=== PATIENT | female | born 1970 | race Caucasian/White ===

== ENCOUNTER 2019-11-22 16:26 | Emergency (ER) | payer OTHER ==
[~2019-11-22] VITALS: Ht 157.5 cm; Wt 99.8 kg
[2019-11-22] MEDS ORDERED: DULOXETINE HCL30 M1 (16:33)
[2019-11-22] MEDS ORDERED: PROM25 (16:34)
[2019-11-22 17:12] LABS: BASOPHILS ABSOLUTE AUTO 0.05 K/mm3 (0.00-0.23); BASOPHILS PERCENT AUTO 1 % (0-2); EOSINOPHILS ABSOLUTE AUTO 0.26 K/mm3 (0.00-0.68); EOSINOPHILS PERCENT AUTO 4 % (0-6); Hematocrit 37.8 % (33.0-51.0); Hemoglobin 12.7 g/dL (11.5-16.0); IMMATURE GRAN ABSOLUTE AUTO 0.05 K/mm3 (0.00-0.10); IMMATURE GRAN PERCENT AUTO 1 % (0-1); LYMPHOCYTES ABSOLUTE AUTO 2.02 K/mm3 (0.84-5.20); LYMPHOCYTES PERCENT AUTO 32 % (21-46); MONOCYTES ABSOLUTE AUTO 0.56 K/mm3 (0.16-1.47); MONOCYTES PERCENT AUTO 9 % (4-13); Mean Corpuscular HGB 29.3 pg (26.0-34.0); Mean Corpuscular HGB Conc 33.6 g/dL (31.5-36.5); Mean Corpuscular Volume 87 fL (80-100); Mean Platelet Volume 9.7 fL (9.1-12.4); NEUTROPHILS PERCENT AUTO 53 % (41-73); Platelet Count 206 K/mm3 (150-400); RDW Coefficient Variation 12.9 % (11.7-14.2); RDW Standard Deviation 40.5 fL (35.1-46.3); Red Blood Cell Count 4.34 M/mm3 (3.80-5.20); White Blood Cell Count 6.24 K/mm3 (4.00-11.30)
[2019-11-22 17:36] LABS: Alanine Aminotransfer (ALT/SGP 34 U/L (12-78); Albumin, Blood 3.4 g/dL (3.4-5.0); Albumin/Globulin Ratio 0.9 (0.8-1.8); Alk Phos 81 U/L (50-136); Anion Gap 6 mmol/L (6-16); Aspartate Aminotrans (AST/SGOT 27 U/L (12-37); Bilirubin, Total 0.5 mg/dL (0.1-1.0); Blood Urea Nitrogen 21 mg/dL (8-24); Bun/Creatinine Ratio 24.6 (12.0-20.0); CO2, Blood 26 mmol/L (21-32); Calcium, Blood 8.8 mg/dL (8.5-10.1); Chloride, Blood 107 mmol/L (98-108); Creatinine, Blood 0.85 mg/dL (0.40-1.00); Globulin, Blood 3.7 g/dL (2.2-4.0); Glomerular Filtration Rate >60 (60-); Glucose, Blood 101 mg/dL (70-99); Potassium, Blood 4.3 mmol/L (3.5-5.5); Sodium, Blood 139 mmol/L (136-145); Total Protein, Blood 7.1 g/dL (6.4-8.2)
== END 2019-11-22 21:32 | disposition home or self-care (01) ==
LOC: ER 16:26
PROVIDERS: Physician Assistant
DX: R42 Dizziness and giddiness (principal); R51 Headache; F43.9 Reaction to severe stress, unspecified; Z79.899 Other long term (current) drug therapy
CPT/HCPCS: 80053; 85025; 93005; 93010; 96361; 96374; 96375; 99284-25; J1200; J1885; J2765; J7030

== ENCOUNTER 2019-12-14 20:20 | Emergency (ER) | payer OTHER ==
[~2019-12-14] VITALS: Ht 157.5 cm; Wt 90.7 kg
[~2019-12-14 20:20] MED LIST: COMPAZINE10 MG PO; Cymbalta30 MG PO; DULOXETINE HCL30 M1; HYDR25SUP PR; PROM25; SUMA25 PO
== END 2019-12-14 23:24 | disposition home or self-care (01) ==
LOC: ER 20:20
DX: L55.9 Sunburn, unspecified (principal); Z88.0 Allergy status to penicillin; Z88.1 Allergy status to other antibiotic agents; Z79.899 Other long term (current) drug therapy; F90.9 Attention-deficit hyperactivity disorder, unspecified type; F41.9 Anxiety disorder, unspecified; Z86.19 Personal history of other infectious and parasitic diseases
CPT/HCPCS: 99282

== ENCOUNTER 2020-04-30 11:11 | Emergency (ER) | payer OTHER ==
[~2020-04-30] VITALS: Ht 154.9 cm; Wt 104.3 kg
[~2020-04-30 11:11] MED LIST changes: +DOC250 PO; +NYSTRIT TOP
[2020-04-30 14:19] LABS: BASOPHILS ABSOLUTE AUTO 0.07 K/mm3 (0.00-0.23); BASOPHILS PERCENT AUTO 1 % (0-2); EOSINOPHILS ABSOLUTE AUTO 0.18 K/mm3 (0.00-0.68); EOSINOPHILS PERCENT AUTO 3 % (0-6); Hematocrit 37.6 % (33.0-51.0); Hemoglobin 12.8 g/dL (11.5-16.0); IMMATURE GRAN ABSOLUTE AUTO 0.07 K/mm3 (0.00-0.10); IMMATURE GRAN PERCENT AUTO 1 % (0-1); LYMPHOCYTES ABSOLUTE AUTO 1.96 K/mm3 (0.84-5.20); LYMPHOCYTES PERCENT AUTO 29 % (21-46); MONOCYTES ABSOLUTE AUTO 0.65 K/mm3 (0.16-1.47); MONOCYTES PERCENT AUTO 10 % (4-13); Mean Corpuscular HGB 29.2 pg (26.0-34.0); Mean Corpuscular Volume 86 fL (80-100); Mean Platelet Volume 9.4 fL (9.1-12.4); NEUTROPHILS ABSOLUTE AUTO 3.93 K/mm3 (1.96-9.15); NEUTROPHILS PERCENT AUTO 57 % (41-73); Platelet Count 201 K/mm3 (150-400); RDW Coefficient Variation 12.3 % (11.7-14.2); RDW Standard Deviation 37.7 fL (35.1-46.3); Red Blood Cell Count 4.39 M/mm3 (3.80-5.20); White Blood Cell Count 6.86 K/mm3 (4.00-11.30)
[2020-04-30 14:35] LABS: Alanine Aminotransfer (ALT/SGP 29 U/L (12-78); Albumin, Blood 3.5 g/dL (3.4-5.0); Albumin/Globulin Ratio 0.9 (0.8-1.8); Alk Phos 87 U/L (50-136); Anion Gap 4 mmol/L (6-16); Aspartate Aminotrans (AST/SGOT 16 U/L (12-37); Bilirubin, Total 0.4 mg/dL (0.1-1.0); Blood Urea Nitrogen 15 mg/dL (8-24); Bun/Creatinine Ratio 21.4 (12.0-20.0); CO2, Blood 31 mmol/L (21-32); Calcium, Blood 9.1 mg/dL (8.5-10.1); Chloride, Blood 105 mmol/L (98-108); Globulin, Blood 3.7 g/dL (2.2-4.0); Glomerular Filtration Rate >60 (60-); Glucose, Blood 127 mg/dL (70-99); Potassium, Blood 4.1 mmol/L (3.5-5.5); Sodium, Blood 140 mmol/L (136-145); Total Protein, Blood 7.2 g/dL (6.4-8.2)
[2020-04-30] MEDS ORDERED: DEPAKOTE ER500 MG PO (14:37)
[2020-04-30] MEDS ORDERED: TRAZ100 PO (14:38)
[2020-04-30] MEDS ORDERED: CYMBALTA30 MG PO (14:38)
[2020-04-30] MEDS ORDERED: QUETIAPINE FUMA50 M3 PO (14:39)
[2020-04-30 15:19] LABS: Influenza A, PCR Negative (NEGATIVE); Influenza B, PCR Negative (NEGATIVE); Resp Syncytial Virus, PCR Negative (NEGATIVE); SARS-Cov-2 (COVID-19) PCR, MMC Negative (NEGATIVE)
== END 2020-04-30 17:12 | disposition home or self-care (01) ==
LOC: ER 11:11
PROVIDERS: Emergency Medicine
DX: K62.5 Hemorrhage of anus and rectum (principal); J06.9 Acute upper respiratory infection, unspecified; K59.00 Constipation, unspecified; F41.9 Anxiety disorder, unspecified; F90.9 Attention-deficit hyperactivity disorder, unspecified type; F43.10 Post-traumatic stress disorder, unspecified; Z88.0 Allergy status to penicillin; Z79.899 Other long term (current) drug therapy
CPT/HCPCS: 0241U; 36415; 71045; 80053; 85025; 99284-25; A9270

== ENCOUNTER 2020-05-07 10:59 | Emergency (ER) | payer OTHER ==
[~2020-05-07] VITALS: Ht 154.9 cm; Wt 104.3 kg
[~2020-05-07 10:59] MED LIST changes: +CYMBALTA30 MG PO; +DEPAKOTE ER500 MG PO; +QUETIAPINE FUMA50 M3 PO; +TRAZ100 PO
[2020-05-07 13:10] LABS: Source, Urine Clean Catch
[2020-05-07 13:18] LABS: Appearance, Urine Hazy (Clear); Bilirubin, Urine Neg (Neg); Blood, Urine 1+ (Neg); Color, Urine Yellow (P-Yellow); Glucose Qualitative, Urine Neg (Neg); Ketones, Urine 1+ (Neg); Leukocyte Esterase, Urine 3+ (Neg); Nitrite, Urine Neg (Neg); Protein, Urine 1+ (Neg); Specific Gravity, Urine 1.025 (1.003-1.022); Urobilinogen, Urine NORM (Normal)
[2020-05-07 13:29] LABS: Squamous Epithelial Cells Few /hpf (Few)
[2020-05-07 13:30] LABS: Bacteria Mod /hpf
[2020-05-07 14:37] LABS: BASOPHILS ABSOLUTE AUTO 0.07 K/mm3 (0.00-0.23); BASOPHILS PERCENT AUTO 1 % (0-2); EOSINOPHILS ABSOLUTE AUTO 0.18 K/mm3 (0.00-0.68); EOSINOPHILS PERCENT AUTO 2 % (0-6); Hemoglobin 13.2 g/dL (11.5-16.0); IMMATURE GRAN ABSOLUTE AUTO 0.07 K/mm3 (0.00-0.10); IMMATURE GRAN PERCENT AUTO 1 % (0-1); LYMPHOCYTES ABSOLUTE AUTO 2.78 K/mm3 (0.84-5.20); LYMPHOCYTES PERCENT AUTO 31 % (21-46); MONOCYTES ABSOLUTE AUTO 0.79 K/mm3 (0.16-1.47); MONOCYTES PERCENT AUTO 9 % (4-13); Mean Corpuscular HGB Conc 34.7 g/dL (31.5-36.5); Mean Corpuscular Volume 86 fL (80-100); Mean Platelet Volume 9.3 fL (9.1-12.4); NEUTROPHILS ABSOLUTE AUTO 5.19 K/mm3 (1.96-9.15); NEUTROPHILS PERCENT AUTO 57 % (41-73); Platelet Count 252 K/mm3 (150-400); RDW Coefficient Variation 12.3 % (11.7-14.2); RDW Standard Deviation 38.5 fL (35.1-46.3); White Blood Cell Count 9.08 K/mm3 (4.00-11.30)
[2020-05-07 14:47] LABS: Alanine Aminotransfer (ALT/SGP 27 U/L (12-78); Albumin, Blood 3.5 g/dL (3.4-5.0); Albumin/Globulin Ratio 0.9 (0.8-1.8); Alk Phos 83 U/L (50-136); Anion Gap 5 mmol/L (6-16); Aspartate Aminotrans (AST/SGOT 13 U/L (12-37); Bilirubin, Total 0.4 mg/dL (0.1-1.0); Blood Urea Nitrogen 15 mg/dL (8-24); Bun/Creatinine Ratio 27.9 (12.0-20.0); CO2, Blood 28 mmol/L (21-32); Calcium, Blood 8.9 mg/dL (8.5-10.1); Chloride, Blood 106 mmol/L (98-108); Creatinine, Blood 0.54 mg/dL (0.40-1.00); Globulin, Blood 3.9 g/dL (2.2-4.0); Glomerular Filtration Rate >60 (60-); Glucose, Blood 114 mg/dL (70-99); Potassium, Blood 3.7 mmol/L (3.5-5.5); Sodium, Blood 139 mmol/L (136-145); Total Protein, Blood 7.4 g/dL (6.4-8.2); Valproic Acid 34.6 ug/mL (50.0-100.0)
[2020-05-07] MEDS ORDERED: Bactrim Ds Tab1 EACH PO (15:21)
[2020-05-07] MEDS ORDERED: MECL25 PO (15:21)
[2020-05-07 15:38] LABS: U Amphetamine Screen Not Detected; U Barbituate Screen Not Detected; U Benzodiazapine Screen Not Detected; U Buprenorphine Screen Not Detected; U Cannabinoids Screen Not Detected; U Cocaine Screen Not Detected; U Methadone Screen Not Detected; U Methamphetamine Screen Not Detected; U Opiates Screen Not Detected; U Oxycodone Screen Not Detected; U Phencyclidine Screen Not Detected; U Propoxyphene Screen Not Detected
== END 2020-05-07 15:44 | disposition home or self-care (01) ==
LOC: ER 10:59
PROVIDERS: Emergency Medicine
DX: N39.0 Urinary tract infection, site not specified (principal); R42 Dizziness and giddiness; F41.9 Anxiety disorder, unspecified; Z88.0 Allergy status to penicillin; Z79.899 Other long term (current) drug therapy
CPT/HCPCS: 36415; 70450; 80053; 80164; 81001; 85025; 87086; 87147; 93005; 93010; 96374; 99285-25; A9270; A9270-GY; J2405

== ENCOUNTER 2020-06-14 10:25 | Emergency (ER) | payer OTHER ==
[~2020-06-14] VITALS: Ht 154.9 cm; Wt 104.3 kg
[~2020-06-14 10:25] MED LIST changes: +Bactrim Ds Tab1 EACH PO; +MECL25 PO
[2020-06-14 11:00] LABS: BASOPHILS ABSOLUTE AUTO 0.05 K/mm3 (0.00-0.23); BASOPHILS PERCENT AUTO 1 % (0-2); EOSINOPHILS ABSOLUTE AUTO 0.17 K/mm3 (0.00-0.68); EOSINOPHILS PERCENT AUTO 2 % (0-6); Hematocrit 39.5 % (33.0-51.0); Hemoglobin 13.9 g/dL (11.5-16.0); IMMATURE GRAN ABSOLUTE AUTO 0.06 K/mm3 (0.00-0.10); IMMATURE GRAN PERCENT AUTO 1 % (0-1); LYMPHOCYTES ABSOLUTE AUTO 2.09 K/mm3 (0.84-5.20); LYMPHOCYTES PERCENT AUTO 28 % (21-46); MONOCYTES ABSOLUTE AUTO 0.59 K/mm3 (0.16-1.47); MONOCYTES PERCENT AUTO 8 % (4-13); Mean Corpuscular HGB 29.3 pg (26.0-34.0); Mean Corpuscular HGB Conc 35.2 g/dL (31.5-36.5); Mean Corpuscular Volume 83 fL (80-100); Mean Platelet Volume 9.2 fL (9.1-12.4); NEUTROPHILS ABSOLUTE AUTO 4.63 K/mm3 (1.96-9.15); NEUTROPHILS PERCENT AUTO 61 % (41-73); Platelet Count 229 K/mm3 (150-400); RDW Coefficient Variation 12.1 % (11.7-14.2); RDW Standard Deviation 36.3 fL (35.1-46.3); Red Blood Cell Count 4.74 M/mm3 (3.80-5.20); White Blood Cell Count 7.59 K/mm3 (4.00-11.30)
[2020-06-14 11:38] LABS: Alanine Aminotransfer (ALT/SGP 65 U/L (12-78); Albumin, Blood 3.7 g/dL (3.4-5.0); Albumin/Globulin Ratio 0.9 (0.8-1.8); Alk Phos 76 U/L (50-136); Anion Gap 6 mmol/L (6-16); Aspartate Aminotrans (AST/SGOT 40 U/L (12-37); Bilirubin, Total 0.4 mg/dL (0.1-1.0); Blood Urea Nitrogen 11 mg/dL (8-24); Bun/Creatinine Ratio 20.1 (12.0-20.0); CO2, Blood 29 mmol/L (21-32); Calcium, Blood 9.1 mg/dL (8.5-10.1); Chloride, Blood 104 mmol/L (98-108); Creatinine, Blood 0.55 mg/dL (0.40-1.00); Globulin, Blood 3.9 g/dL (2.2-4.0); Glomerular Filtration Rate >60 (60-); Glucose, Blood 142 mg/dL (70-99); Sodium, Blood 139 mmol/L (136-145); Total Protein, Blood 7.6 g/dL (6.4-8.2); Valproic Acid <3.0 ug/mL (50.0-100.0)
== END 2020-06-14 12:21 | disposition home or self-care (01) ==
LOC: ER 10:25
PROVIDERS: Emergency Medicine
DX: R51.9 Headache, unspecified (principal); Z79.899 Other long term (current) drug therapy; Z88.0 Allergy status to penicillin
CPT/HCPCS: 36415; 80053; 80164; 85025; 96361; 96374; 96375; 99284-25; A9270; J1630; J1885; J7030

== ENCOUNTER 2020-06-25 14:03 | Emergency (ER) | payer OTHER ==
[~2020-06-25] VITALS: Ht 154.9 cm; Wt 99.8 kg
[2020-06-25 15:22] LABS: BASOPHILS ABSOLUTE AUTO 0.06 K/mm3 (0.00-0.23); BASOPHILS PERCENT AUTO 1 % (0-2); EOSINOPHILS ABSOLUTE AUTO 0.18 K/mm3 (0.00-0.68); EOSINOPHILS PERCENT AUTO 3 % (0-6); Hematocrit 36.7 % (33.0-51.0); Hemoglobin 12.7 g/dL (11.5-16.0); IMMATURE GRAN ABSOLUTE AUTO 0.03 K/mm3 (0.00-0.10); IMMATURE GRAN PERCENT AUTO 0 % (0-1); LYMPHOCYTES PERCENT AUTO 36 % (21-46); MONOCYTES ABSOLUTE AUTO 0.61 K/mm3 (0.16-1.47); MONOCYTES PERCENT AUTO 9 % (4-13); Mean Corpuscular HGB 29.2 pg (26.0-34.0); Mean Corpuscular HGB Conc 34.6 g/dL (31.5-36.5); Mean Corpuscular Volume 84 fL (80-100); Mean Platelet Volume 9.3 fL (9.1-12.4); NEUTROPHILS ABSOLUTE AUTO 3.55 K/mm3 (1.96-9.15); NEUTROPHILS PERCENT AUTO 51 % (41-73); Platelet Count 214 K/mm3 (150-400); RDW Coefficient Variation 12.3 % (11.7-14.2); RDW Standard Deviation 37.3 fL (35.1-46.3); Red Blood Cell Count 4.35 M/mm3 (3.80-5.20); White Blood Cell Count 6.93 K/mm3 (4.00-11.30)
[2020-06-25 15:38] LABS: Alanine Aminotransfer (ALT/SGP 56 U/L (12-78); Albumin, Blood 3.4 g/dL (3.4-5.0); Alk Phos 78 U/L (50-136); Anion Gap 6 mmol/L (6-16); Aspartate Aminotrans (AST/SGOT 29 U/L (12-37); Bilirubin, Total 0.3 mg/dL (0.1-1.0); Blood Urea Nitrogen 11 mg/dL (8-24); CO2, Blood 30 mmol/L (21-32); Calcium, Blood 8.9 mg/dL (8.5-10.1); Chloride, Blood 106 mmol/L (98-108); Creatinine, Blood 0.58 mg/dL (0.40-1.00); Globulin, Blood 3.5 g/dL (2.2-4.0); Glomerular Filtration Rate >60 (60-); Glucose, Blood 161 mg/dL (70-99); Potassium, Blood 3.5 mmol/L (3.5-5.5); Sodium, Blood 142 mmol/L (136-145); Total Protein, Blood 6.9 g/dL (6.4-8.2)
== END 2020-06-25 16:46 | disposition home or self-care (01) ==
LOC: ER 14:03
PROVIDERS: Emergency Medicine
DX: F41.0 Panic disorder [episodic paroxysmal anxiety] (principal); F41.9 Anxiety disorder, unspecified; Z88.0 Allergy status to penicillin; Z79.899 Other long term (current) drug therapy
CPT/HCPCS: 80053; 85025; 93005; 93010; 99284-25

== ENCOUNTER 2020-06-26 10:11 | Emergency (ER) | payer OTHER ==
[~2020-06-26] VITALS: Ht 157.5 cm; Wt 104.3 kg
== END 2020-06-26 13:39 | disposition home or self-care (01) ==
LOC: ER 10:11
DX: R51.9 Headache, unspecified (principal); Z79.899 Other long term (current) drug therapy; Z88.0 Allergy status to penicillin
CPT/HCPCS: 96361; 96374; 96375; 99285-25; J0780; J1100; J1200; J7030

== ENCOUNTER 2020-06-30 14:26 | Emergency (ER) | payer OTHER ==
[~2020-06-30] VITALS: Ht 157.5 cm; Wt 104.3 kg
[2020-06-30 15:35] LABS: BASOPHILS ABSOLUTE AUTO 0.08 K/mm3 (0.00-0.23); BASOPHILS PERCENT AUTO 1 % (0-2); EOSINOPHILS ABSOLUTE AUTO 0.29 K/mm3 (0.00-0.68); EOSINOPHILS PERCENT AUTO 3 % (0-6); Hemoglobin 14.3 g/dL (11.5-16.0); IMMATURE GRAN ABSOLUTE AUTO 0.07 K/mm3 (0.00-0.10); IMMATURE GRAN PERCENT AUTO 1 % (0-1); LYMPHOCYTES ABSOLUTE AUTO 2.91 K/mm3 (0.84-5.20); LYMPHOCYTES PERCENT AUTO 33 % (21-46); MONOCYTES ABSOLUTE AUTO 0.65 K/mm3 (0.16-1.47); MONOCYTES PERCENT AUTO 7 % (4-13); Mean Corpuscular HGB 29.1 pg (26.0-34.0); Mean Corpuscular Volume 85 fL (80-100); Mean Platelet Volume 9.2 fL (9.1-12.4); NEUTROPHILS ABSOLUTE AUTO 4.88 K/mm3 (1.96-9.15); NEUTROPHILS PERCENT AUTO 55 % (41-73); Platelet Count 239 K/mm3 (150-400); RDW Coefficient Variation 12.3 % (11.7-14.2); RDW Standard Deviation 38.4 fL (35.1-46.3); Red Blood Cell Count 4.92 M/mm3 (3.80-5.20); White Blood Cell Count 8.88 K/mm3 (4.00-11.30)
[2020-06-30 15:51] LABS: Alanine Aminotransfer (ALT/SGP 52 U/L (12-78); Alk Phos 83 U/L (50-136); Anion Gap 8 mmol/L (6-16); Aspartate Aminotrans (AST/SGOT 24 U/L (12-37); Bilirubin, Total 0.7 mg/dL (0.1-1.0); Blood Urea Nitrogen 11 mg/dL (8-24); Bun/Creatinine Ratio 18.6 (12.0-20.0); CO2, Blood 28 mmol/L (21-32); Chloride, Blood 102 mmol/L (98-108); Creatinine, Blood 0.59 mg/dL (0.40-1.00); Globulin, Blood 4.1 g/dL (2.2-4.0); Glomerular Filtration Rate >60 (60-); Glucose, Blood 93 mg/dL (70-99); Potassium, Blood 3.9 mmol/L (3.5-5.5); Sodium, Blood 138 mmol/L (136-145); Total Protein, Blood 8.1 g/dL (6.4-8.2)
[2020-06-30] MEDS ORDERED: Premarin0.3 MG PO (17:20)
[2020-06-30 20:51] LABS: Source, Urine Clean Catch
[2020-06-30 20:55] LABS: Appearance, Urine Clear (Clear); Bilirubin, Urine Neg (Neg); Blood, Urine Neg (Neg); Color, Urine Yellow (P-Yellow); Glucose Qualitative, Urine Neg (Neg); Ketones, Urine 1+ (Neg); Leukocyte Esterase, Urine Neg (Neg); Nitrite, Urine Neg (Neg); Protein, Urine 1+ (Neg); Urobilinogen, Urine NORM (Normal)
== END 2020-06-30 20:58 | disposition home or self-care (01) ==
LOC: ER 14:26
PROVIDERS: Emergency Medicine; Physician Assistant
DX: R10.30 Lower abdominal pain, unspecified (principal); R11.0 Nausea; I10 Essential (primary) hypertension; Z88.0 Allergy status to penicillin; Z79.899 Other long term (current) drug therapy
CPT/HCPCS: 36415; 74177; 80053; 83690; 84484; 85025; 96361; 96374-59; 96375; 99284-25; A9270; J0780; J1885; J7120; Q9967

== ENCOUNTER 2020-08-22 13:19 | Emergency (ER) | payer OTHER ==
[~2020-08-22] VITALS: Ht 157.5 cm; Wt 90.7 kg
[~2020-08-22 13:19] MED LIST changes: +Premarin0.3 MG PO
[2020-12-29] MEDS ORDERED: ATOMOXETINE HCL80 M1 (14:47)
[2020-12-29] MEDS ORDERED: BACL10 (14:48)
[2020-12-29] MEDS ORDERED: Voltaren100 GM (14:48)
[2020-12-29] MEDS ORDERED: LINZESS145 MCG (14:49)
[2020-12-29] MEDS ORDERED: NAPR500 (14:49)
[2020-12-29] MEDS ORDERED: MIRALAX17 GM (14:50)
[2020-12-29] MEDS ORDERED: OMEP20ER (14:50)
== END 2020-08-22 15:04 | disposition left against medical advice (07) ==
LOC: ER 13:19
DX: M54.2 Cervicalgia (principal); R51.9 Headache, unspecified; Z53.21 Procedure and treatment not carried out due to patient leaving prior to being seen by health care provider
CPT/HCPCS: 99282

== ENCOUNTER 2020-12-12 16:05 | Emergency (ER) | payer OTHER ==
[~2020-12-12] VITALS: Ht 157.5 cm; Wt 90.7 kg
== END 2020-12-12 18:33 | disposition home or self-care (01) ==
LOC: ER 16:05
DX: E86.0 Dehydration (principal); R11.2 Nausea with vomiting, unspecified; I10 Essential (primary) hypertension; F17.290 Nicotine dependence, other tobacco product, uncomplicated; Z88.0 Allergy status to penicillin; Z79.899 Other long term (current) drug therapy
CPT/HCPCS: 99283

== ENCOUNTER 2021-01-06 09:12 | Day surgery (SDC) | payer OTHER ==
[~2021-01-06] VITALS: Ht 157.5 cm; Wt 113.7 kg
[~2021-01-06 09:12] MED LIST changes: +ATOMOXETINE HCL80 M1; +BACL10; +LINZESS145 MCG; +MIRALAX17 GM; +NAPR500; +OMEP20ER; +Voltaren100 GM
--- NOTE | 2021-01-06 11:09 | NUR ---
01/06/21 1109 NICOLAAS ASTUDILLO 6 TOTAL ATTEMPTS. RHRICKEY AMOR, JENNIFER X2, R AC.
--- NOTE | 2021-01-06 16:20 | NUR ---
01/06/21 1620 Jennifer Jones LATE ENTRY: PT IV SITE ON THE RIGHT UPPER ARM INFILTRATED. THAO WARREN RE-STARTED A NEW IV ON THE LEFT FOREARM. WARM PACK AND WARM BLANKET PLACED ON THE RIGHT UPPER ARM FOR COMFORT.
--- NOTE | 2021-01-06 16:21 | NUR ---
01/06/21 1621 Jennifer Jones IV ON THE LEFT FOREARM REMOVED PRIOR TO DISCHARGE. IV SITE WNL.
== END 2021-01-06 13:01 | disposition home or self-care (01) ==
LOC: ORSCSDS 09:12
PROVIDERS: Student in an Organized Health Care Education/Training Program
PROC: 0DB58ZX Excision of Esophagus, Via Natural or Artificial Opening Endoscopic, Diagnostic (ICD-10-PCS; principal; 2021-01-06 11:00)
PROC: 0DB68ZX Excision of Stomach, Via Natural or Artificial Opening Endoscopic, Diagnostic (ICD-10-PCS; principal; 2021-01-06 11:00)
PROC: 0DB98ZX Excision of Duodenum, Via Natural or Artificial Opening Endoscopic, Diagnostic (ICD-10-PCS; principal; 2021-01-06 11:00)
PROC: 0DJD8ZZ Inspection of Lower Intestinal Tract, Via Natural or Artificial Opening Endoscopic (ICD-10-PCS; principal; 2021-01-06 11:00)
DX: K62.5 Hemorrhage of anus and rectum (principal); K64.4 Residual hemorrhoidal skin tags; K64.8 Other hemorrhoids; R13.10 Dysphagia, unspecified; K21.9 Gastro-esophageal reflux disease without esophagitis; G47.33 Obstructive sleep apnea (adult) (pediatric); F31.9 Bipolar disorder, unspecified; B18.2 Chronic viral hepatitis C; F90.9 Attention-deficit hyperactivity disorder, unspecified type; F41.8 Other specified anxiety disorders; F43.10 Post-traumatic stress disorder, unspecified; E66.01 Morbid (severe) obesity due to excess calories; Z68.42 Body mass index [BMI] 45.0-49.9, adult; Z79.899 Other long term (current) drug therapy
CPT/HCPCS: 88305; 88342; J2704; J7120

== ENCOUNTER 2021-04-06 10:18 | Day surgery (SDC) | payer OTHER ==
[~2021-04-06] VITALS: Ht 157.5 cm; Wt 112.3 kg
== END 2021-04-06 13:09 | disposition home or self-care (01) ==
LOC: ORSCSDS 10:18
PROVIDERS: Student in an Organized Health Care Education/Training Program
PROC: 0DBK8ZX Excision of Ascending Colon, Via Natural or Artificial Opening Endoscopic, Diagnostic (ICD-10-PCS; principal; 2021-04-06 12:00)
DX: K62.5 Hemorrhage of anus and rectum (principal); D12.2 Benign neoplasm of ascending colon; K64.8 Other hemorrhoids; K64.4 Residual hemorrhoidal skin tags; I10 Essential (primary) hypertension; G47.33 Obstructive sleep apnea (adult) (pediatric); J45.909 Unspecified asthma, uncomplicated; F31.9 Bipolar disorder, unspecified; F90.9 Attention-deficit hyperactivity disorder, unspecified type; Z79.899 Other long term (current) drug therapy; E66.01 Morbid (severe) obesity due to excess calories; Z68.42 Body mass index [BMI] 45.0-49.9, adult
CPT/HCPCS: 88305; J2704; J7120

== ENCOUNTER 2021-06-05 10:48 | Emergency (ER) | payer OTHER ==
[~2021-06-05] VITALS: Ht 157.5 cm; Wt 111.6 kg
[2021-06-05 12:29] LABS: Influenza A, PCR NEGATIVE (NEGATIVE); Influenza B, PCR NEGATIVE (NEGATIVE); SARS-Cov-2 (COVID-19) PCR, MMC NEGATIVE (NEGATIVE)
[2021-06-05 12:43] LABS: Resp Syncytial Virus, PCR POSITIVE (NEGATIVE)
[2021-06-05] MEDS ORDERED: KETO10 PO (13:10)
== END 2021-06-05 13:16 | disposition home or self-care (01) ==
LOC: ER 10:48
PROVIDERS: Physician Assistant
DX: R05.9 Cough, unspecified (principal); B97.4 Respiratory syncytial virus as the cause of diseases classified elsewhere; I10 Essential (primary) hypertension; G43.909 Migraine, unspecified, not intractable, without status migrainosus; Z88.0 Allergy status to penicillin; Z88.8 Allergy status to other drugs, medicaments and biological substances; Z79.899 Other long term (current) drug therapy; Z20.822 Contact with and (suspected) exposure to COVID-19; F17.290 Nicotine dependence, other tobacco product, uncomplicated
CPT/HCPCS: 0241U; 96372; 99284-25; J1885

== ENCOUNTER 2021-07-15 14:29 | Emergency (ER) | payer OTHER ==
[~2021-07-15] VITALS: Ht 157.5 cm; Wt 113.4 kg
[~2021-07-15 14:29] MED LIST changes: +KETO10 PO
[2021-07-15] MEDS ORDERED: IBUP400 PO (15:15)
[2021-07-15] MEDS ORDERED: ACETAMINOPHEN500 MG PO (15:52)
[2021-07-15 15:55] LABS: Calcium, Ionized (POC) 1.17 mmol/L (1.10-1.46); Chloride (POC) 103 mmol/L (98-108); Creatinine (POC) 0.8 mg/dL (0.6-1.0); Glucose (ISTAT POC) 105 mg/dL (70-99); Hemoglobin (POC) 10.5 g/dL (12.0-16.0); Sodium (POC) 141 mmol/L (135-148); Total CO2 (POC) 27 mmol/L (21-32)
== END 2021-07-15 16:15 | disposition home or self-care (01) ==
LOC: ER 14:29
PROVIDERS: Emergency Medicine
DX: R51.9 Headache, unspecified (principal); D64.9 Anemia, unspecified; Z88.0 Allergy status to penicillin; Z79.899 Other long term (current) drug therapy; G43.909 Migraine, unspecified, not intractable, without status migrainosus; I10 Essential (primary) hypertension; F17.290 Nicotine dependence, other tobacco product, uncomplicated
CPT/HCPCS: 80047; 85014; 96372; 99284-25; J1885

== ENCOUNTER 2021-08-05 14:04 | Emergency (ER) | payer OTHER ==
[~2021-08-05] VITALS: Ht 154.9 cm; Wt 112.9 kg
[~2021-08-05 14:04] MED LIST changes: +ACETAMINOPHEN500 MG PO; +IBUP400 PO; -QUETIAPINE FUMA50 M3 PO; +Seroquel Xr50 MG PO
[2021-08-05 15:18] LABS: BASOPHILS ABSOLUTE AUTO 0.06 K/mm3 (0.00-0.23); BASOPHILS PERCENT AUTO 1 % (0-2); EOSINOPHILS ABSOLUTE AUTO 0.17 K/mm3 (0.00-0.68); EOSINOPHILS PERCENT AUTO 3 % (0-6); Hematocrit 39.7 % (33.0-51.0); Hemoglobin 13.9 g/dL (11.5-16.0); IMMATURE GRAN ABSOLUTE AUTO 0.02 K/mm3 (0.00-0.10); IMMATURE GRAN PERCENT AUTO 0 % (0-1); LYMPHOCYTES PERCENT AUTO 42 % (21-46); MONOCYTES ABSOLUTE AUTO 0.47 K/mm3 (0.16-1.47); MONOCYTES PERCENT AUTO 8 % (4-13); Mean Corpuscular HGB 30.2 pg (26.0-34.0); Mean Corpuscular Volume 86 fL (80-100); Mean Platelet Volume 9.3 fL (9.1-12.4); NEUTROPHILS ABSOLUTE AUTO 2.78 K/mm3 (1.96-9.15); NEUTROPHILS PERCENT AUTO 46 % (41-73); Platelet Count 224 K/mm3 (150-400); RDW Coefficient Variation 11.9 % (11.7-14.2); RDW Standard Deviation 36.9 fL (35.1-46.3)
[2021-08-05] MEDS ORDERED: ATOMOXETINE HCL80 M3 PO (16:13)
[2021-08-05 16:21] LABS: Ethanol (Alcohol), Blood, Med <3 mg/dL; Salicylate <1.7 mg/dL (2.8-20.0)
[2021-08-05 16:23] LABS: Alanine Aminotransfer (ALT/SGP 47 U/L (12-78); Albumin, Blood 3.8 g/dL (3.4-5.0); Alk Phos 67 U/L (50-136); Anion Gap 5 mmol/L (6-16); Aspartate Aminotrans (AST/SGOT 24 U/L (12-37); Bilirubin, Total 0.5 mg/dL (0.1-1.0); Blood Urea Nitrogen 11 mg/dL (8-24); Bun/Creatinine Ratio 13.1 (12.0-20.0); CO2, Blood 30 mmol/L (21-32); Calcium, Blood 9.1 mg/dL (8.5-10.1); Chloride, Blood 103 mmol/L (98-108); Creatinine, Blood 0.84 mg/dL (0.40-1.00); Globulin, Blood 3.9 g/dL (2.2-4.0); Glomerular Filtration Rate >60 (60-); Glucose, Blood 120 mg/dL (70-99); Potassium, Blood 3.7 mmol/L (3.5-5.5); Sodium, Blood 138 mmol/L (136-145); Total Protein, Blood 7.7 g/dL (6.4-8.2)
[2021-08-05 16:28] LABS: Acetaminophen, Random <2.0 ug/mL (10.0-30.0)
[2021-08-05 17:08] LABS: Source, Urine Clean Catch
[2021-08-05 17:18] LABS: Appearance, Urine Clear (Clear); Bilirubin, Urine Neg (Neg); Blood, Urine Neg (Neg); Color, Urine Yellow (P-Yellow); Glucose Qualitative, Urine Neg (Neg); Ketones, Urine 1+ (Neg); Leukocyte Esterase, Urine Neg (Neg); Nitrite, Urine Neg (Neg); Protein, Urine Neg (Neg); Specific Gravity, Urine 1.015 (1.003-1.022); Urobilinogen, Urine NORM (Normal); pH, Urine 6.5 (5.0-8.0)
[2021-08-05 17:43] LABS: U Amphetamine Screen Not Detected; U Barbituate Screen Not Detected; U Benzodiazapine Screen Not Detected; U Buprenorphine Screen Not Detected; U Cannabinoids Screen Not Detected; U Cocaine Screen Not Detected; U Methadone Screen Not Detected; U Methamphetamine Screen Not Detected; U Opiates Screen DETECTED; U Oxycodone Screen Not Detected; U Phencyclidine Screen Not Detected; U Propoxyphene Screen Not Detected
[2021-08-05] MEDS ORDERED: KETO10 PO (19:28)
== END 2021-08-05 19:41 | disposition home or self-care (01) ==
LOC: ER 14:04
PROVIDERS: Physician Assistant
DX: F41.9 Anxiety disorder, unspecified (principal); R44.0 Auditory hallucinations; G43.909 Migraine, unspecified, not intractable, without status migrainosus; I10 Essential (primary) hypertension; Z79.899 Other long term (current) drug therapy; Z88.0 Allergy status to penicillin
CPT/HCPCS: 36415; 80053; 81003; 81025; 85025; 93005; 93010; 99284-25; A9270; G0480; Q3014

== ENCOUNTER 2021-08-25 11:31 | Emergency (ER) | payer OTHER ==
[~2021-08-25] VITALS: Ht 157.5 cm; Wt 113.4 kg
[~2021-08-25 11:31] MED LIST changes: +ATOMOXETINE HCL80 M3 PO
[2021-08-25] MEDS ORDERED: CATAPRES0.1 MG (12:10)
[2021-08-25] MEDS ORDERED: MICROZIDE12.5 M1 (12:10)
[2021-08-25] MEDS ORDERED: LIDO700A20 TOP (13:49)
[2021-08-25] MEDS ORDERED: KETO10 PO (13:49)
== END 2021-08-25 14:40 | disposition home or self-care (01) ==
LOC: ER 11:31
DX: G43.109 Migraine with aura, not intractable, without status migrainosus (principal); I10 Essential (primary) hypertension; Z79.899 Other long term (current) drug therapy; Z88.0 Allergy status to penicillin
CPT/HCPCS: 96372; 99283-25; J1885; J7030

== ENCOUNTER 2021-09-09 12:45 | Emergency (ER) | payer OTHER ==
[~2021-09-09] VITALS: Ht 157.5 cm; Wt 113.4 kg
[~2021-09-09 12:45] MED LIST changes: +CATAPRES0.1 MG; +LIDO700A20 TOP; +MICROZIDE12.5 M1
[2021-09-09 13:26] LABS: BASOPHILS ABSOLUTE AUTO 0.05 K/mm3 (0.00-0.23); BASOPHILS PERCENT AUTO 1 % (0-2); EOSINOPHILS ABSOLUTE AUTO 0.14 K/mm3 (0.00-0.68); EOSINOPHILS PERCENT AUTO 2 % (0-6); Hematocrit 37.2 % (33.0-51.0); Hemoglobin 12.9 g/dL (11.5-16.0); IMMATURE GRAN ABSOLUTE AUTO 0.02 K/mm3 (0.00-0.10); IMMATURE GRAN PERCENT AUTO 0 % (0-1); LYMPHOCYTES ABSOLUTE AUTO 2.38 K/mm3 (0.84-5.20); LYMPHOCYTES PERCENT AUTO 41 % (21-46); MONOCYTES ABSOLUTE AUTO 0.45 K/mm3 (0.16-1.47); MONOCYTES PERCENT AUTO 8 % (4-13); Mean Corpuscular HGB 30.2 pg (26.0-34.0); Mean Corpuscular HGB Conc 34.7 g/dL (31.5-36.5); Mean Corpuscular Volume 87 fL (80-100); Mean Platelet Volume 9.1 fL (9.1-12.4); NEUTROPHILS PERCENT AUTO 48 % (41-73); Platelet Count 171 K/mm3 (150-400); RDW Coefficient Variation 12.1 % (11.7-14.2); RDW Standard Deviation 38.2 fL (35.1-46.3); Red Blood Cell Count 4.27 M/mm3 (3.80-5.20); White Blood Cell Count 5.84 K/mm3 (4.00-11.30)
[2021-09-09 14:00] LABS: Alanine Aminotransfer (ALT/SGP 41 U/L (12-78); Albumin, Blood 3.6 g/dL (3.4-5.0); Albumin/Globulin Ratio 0.9 (0.8-1.8); Alk Phos 45 U/L (50-136); Anion Gap 10 mmol/L (6-16); Aspartate Aminotrans (AST/SGOT 29 U/L (12-37); Bilirubin, Total 0.4 mg/dL (0.1-1.0); Blood Urea Nitrogen 8 mg/dL (8-24); Bun/Creatinine Ratio 13.5 (12.0-20.0); CO2, Blood 24 mmol/L (21-32); Chloride, Blood 101 mmol/L (98-108); Creatinine, Blood 0.59 mg/dL (0.40-1.00); Globulin, Blood 3.9 g/dL (2.2-4.0); Glomerular Filtration Rate >60 (60-); Glucose, Blood 103 mg/dL (70-99); Potassium, Blood 3.8 mmol/L (3.5-5.5); Sodium, Blood 135 mmol/L (136-145); Total Protein, Blood 7.5 g/dL (6.4-8.2)
[2021-09-09 16:25] LABS: Valproic Acid 86.7 ug/mL (50.0-100.0)
== END 2021-09-09 17:40 | disposition home or self-care (01) ==
LOC: ER 12:45
PROVIDERS: Physician Assistant
DX: G43.909 Migraine, unspecified, not intractable, without status migrainosus (principal); Z88.0 Allergy status to penicillin; Z79.899 Other long term (current) drug therapy; I10 Essential (primary) hypertension
CPT/HCPCS: 36415; 80053; 80164; 83735; 85025; 96374; 99284-25; A9270; J1885; J7030

== ENCOUNTER 2021-09-16 14:19 | Emergency (ER) | payer OTHER ==
[~2021-09-16] VITALS: Ht 157.5 cm; Wt 113.4 kg
== END 2021-09-16 17:26 | disposition home or self-care (01) ==
LOC: ER 14:19
DX: R56.9 Unspecified convulsions (principal); Z88.0 Allergy status to penicillin; I10 Essential (primary) hypertension; G43.909 Migraine, unspecified, not intractable, without status migrainosus; Z79.899 Other long term (current) drug therapy
CPT/HCPCS: 70450; 86592; 99284-25

== ENCOUNTER 2021-10-14 10:28 | Emergency (ER) | payer OTHER ==
[~2021-10-14] VITALS: Ht 157.5 cm; Wt 113.4 kg
[2021-10-14 11:21] LABS: BASOPHILS ABSOLUTE AUTO 0.04 K/mm3 (0.00-0.23); BASOPHILS PERCENT AUTO 1 % (0-2); EOSINOPHILS ABSOLUTE AUTO 0.12 K/mm3 (0.00-0.68); EOSINOPHILS PERCENT AUTO 2 % (0-6); Hematocrit 36.8 % (33.0-51.0); Hemoglobin 12.8 g/dL (11.5-16.0); IMMATURE GRAN ABSOLUTE AUTO 0.03 K/mm3 (0.00-0.10); IMMATURE GRAN PERCENT AUTO 1 % (0-1); LYMPHOCYTES ABSOLUTE AUTO 2.07 K/mm3 (0.84-5.20); LYMPHOCYTES PERCENT AUTO 37 % (21-46); MONOCYTES ABSOLUTE AUTO 0.62 K/mm3 (0.16-1.47); MONOCYTES PERCENT AUTO 11 % (4-13); Mean Corpuscular HGB Conc 34.8 g/dL (31.5-36.5); Mean Corpuscular Volume 86 fL (80-100); NEUTROPHILS ABSOLUTE AUTO 2.73 K/mm3 (1.96-9.15); NEUTROPHILS PERCENT AUTO 49 % (41-73); Platelet Count 188 K/mm3 (150-400); RDW Coefficient Variation 12.1 % (11.7-14.2); RDW Standard Deviation 38.1 fL (35.1-46.3); Red Blood Cell Count 4.26 M/mm3 (3.80-5.20); White Blood Cell Count 5.61 K/mm3 (4.00-11.30)
[2021-10-14 12:02] LABS: Albumin, Blood 3.4 g/dL (3.4-5.0); Albumin/Globulin Ratio 0.9 (0.8-1.8); Bilirubin, Total 0.3 mg/dL (0.1-1.0); Calcium, Blood 8.9 mg/dL (8.5-10.1); Creatinine, Blood 0.67 mg/dL (0.40-1.00); Globulin, Blood 3.7 g/dL (2.2-4.0); Total Protein, Blood 7.1 g/dL (6.4-8.2)
[2021-10-14 13:36] LABS: Source, Urine Clean Catch
[2021-10-14 13:40] LABS: Appearance, Urine Clear (Clear); Bilirubin, Urine Neg (Neg); Blood, Urine Neg (Neg); Color, Urine Yellow (P-Yellow); Glucose Qualitative, Urine Neg (Neg); Ketones, Urine Neg (Neg); Leukocyte Esterase, Urine Neg (Neg); Nitrite, Urine Neg (Neg); Protein, Urine Neg (Neg); Urobilinogen, Urine NORM (Normal)
[2021-10-14] MEDS ORDERED: DICY20 PO (14:02)
[2021-10-14] MEDS ORDERED: MIRALAX17 GM PO (14:02)
== END 2021-10-14 14:13 | disposition home or self-care (01) ==
LOC: ER 10:28
PROVIDERS: Physician Assistant
DX: K59.00 Constipation, unspecified (principal); I10 Essential (primary) hypertension; G40.909 Epilepsy, unspecified, not intractable, without status epilepticus; Z88.1 Allergy status to other antibiotic agents; Z79.899 Other long term (current) drug therapy
CPT/HCPCS: 36415; 74176; 80053; 81003; 83690; 85025; A9270; J1200; J1885; J2765; J7030

== ENCOUNTER 2021-10-29 14:17 | Emergency (ER) | payer OTHER ==
[~2021-10-29] VITALS: Ht 157.5 cm; Wt 111.6 kg
[~2021-10-29 14:17] MED LIST changes: +DICY20 PO; +MIRALAX17 GM PO
[2021-10-29 15:31] LABS: BASOPHILS ABSOLUTE AUTO 0.06 K/mm3 (0.00-0.23); BASOPHILS PERCENT AUTO 1 % (0-2); EOSINOPHILS ABSOLUTE AUTO 0.26 K/mm3 (0.00-0.68); EOSINOPHILS PERCENT AUTO 4 % (0-6); Hematocrit 36.2 % (33.0-51.0); Hemoglobin 12.9 g/dL (11.5-16.0); IMMATURE GRAN ABSOLUTE AUTO 0.04 K/mm3 (0.00-0.10); IMMATURE GRAN PERCENT AUTO 1 % (0-1); LYMPHOCYTES ABSOLUTE AUTO 1.78 K/mm3 (0.84-5.20); LYMPHOCYTES PERCENT AUTO 28 % (21-46); MONOCYTES ABSOLUTE AUTO 0.79 K/mm3 (0.16-1.47); MONOCYTES PERCENT AUTO 12 % (4-13); Mean Corpuscular HGB 30.3 pg (26.0-34.0); Mean Corpuscular HGB Conc 35.6 g/dL (31.5-36.5); Mean Corpuscular Volume 85 fL (80-100); NEUTROPHILS ABSOLUTE AUTO 3.53 K/mm3 (1.96-9.15); NEUTROPHILS PERCENT AUTO 55 % (41-73); Platelet Count 194 K/mm3 (150-400); RDW Standard Deviation 36.3 fL (35.1-46.3); Red Blood Cell Count 4.26 M/mm3 (3.80-5.20); White Blood Cell Count 6.46 K/mm3 (4.00-11.30)
[2021-10-29 15:58] LABS: Albumin, Blood 3.7 g/dL (3.4-5.0); Bilirubin, Total 0.6 mg/dL (0.1-1.0); Bun/Creatinine Ratio 19.1 (12.0-20.0); Calcium, Blood 9.5 mg/dL (8.5-10.1); Creatinine, Blood 0.58 mg/dL (0.40-1.00); Globulin, Blood 3.8 g/dL (2.2-4.0); Magnesium, Blood 2.2 mg/dL (1.6-2.4); Potassium, Blood 4.2 mmol/L (3.5-5.5); Total Protein, Blood 7.5 g/dL (6.4-8.2)
== END 2021-10-29 19:50 | disposition home or self-care (01) ==
LOC: ER 14:17
PROVIDERS: Physician Assistant
DX: G43.909 Migraine, unspecified, not intractable, without status migrainosus (principal); Z88.0 Allergy status to penicillin; Z79.899 Other long term (current) drug therapy; I10 Essential (primary) hypertension
CPT/HCPCS: 36415; 70450; 80053; 83735; 85025; 96374; 96375; 99284-25; J1200; J1885; J2765; J7030

== ENCOUNTER 2021-12-10 13:16 | Emergency (ER) | payer OTHER ==
[~2021-12-10] VITALS: Ht 157.5 cm; Wt 108.9 kg
== END 2021-12-10 15:07 | disposition home or self-care (01) ==
LOC: ER 13:16
DX: G43.909 Migraine, unspecified, not intractable, without status migrainosus (principal); I10 Essential (primary) hypertension; Z88.0 Allergy status to penicillin; Z79.899 Other long term (current) drug therapy; Z79.818 Long term (current) use of other agents affecting estrogen receptors and estrogen levels
CPT/HCPCS: J1885

== ENCOUNTER 2021-12-16 11:59 | Emergency (ER) | payer OTHER ==
[~2021-12-16] VITALS: Ht 162.6 cm; Wt 113.4 kg
[2021-12-16 12:37] LABS: BASOPHILS ABSOLUTE AUTO 0.04 K/mm3 (0.00-0.23); BASOPHILS PERCENT AUTO 1 % (0-2); EOSINOPHILS ABSOLUTE AUTO 0.08 K/mm3 (0.00-0.68); EOSINOPHILS PERCENT AUTO 1 % (0-6); Hematocrit 37.1 % (33.0-51.0); IMMATURE GRAN ABSOLUTE AUTO 0.02 K/mm3 (0.00-0.10); IMMATURE GRAN PERCENT AUTO 0 % (0-1); LYMPHOCYTES ABSOLUTE AUTO 1.91 K/mm3 (0.84-5.20); LYMPHOCYTES PERCENT AUTO 33 % (21-46); MONOCYTES ABSOLUTE AUTO 0.51 K/mm3 (0.16-1.47); MONOCYTES PERCENT AUTO 9 % (4-13); Mean Corpuscular HGB 30.4 pg (26.0-34.0); Mean Corpuscular Volume 87 fL (80-100); Mean Platelet Volume 9.1 fL (9.1-12.4); NEUTROPHILS ABSOLUTE AUTO 3.21 K/mm3 (1.96-9.15); NEUTROPHILS PERCENT AUTO 56 % (41-73); Platelet Count 182 K/mm3 (150-400); RDW Coefficient Variation 11.7 % (11.7-14.2); RDW Standard Deviation 36.7 fL (35.1-46.3); Red Blood Cell Count 4.27 M/mm3 (3.80-5.20); White Blood Cell Count 5.77 K/mm3 (4.00-11.30)
[2021-12-16 13:03] LABS: Albumin, Blood 3.6 g/dL (3.4-5.0); Bilirubin, Total 0.6 mg/dL (0.1-1.0); Bun/Creatinine Ratio 14.8 (12.0-20.0); Creatinine, Blood 0.68 mg/dL (0.40-1.00); Globulin, Blood 3.5 g/dL (2.2-4.0); Potassium, Blood 3.7 mmol/L (3.5-5.5); Total Protein, Blood 7.1 g/dL (6.4-8.2)
== END 2021-12-16 15:46 | disposition home or self-care (01) ==
LOC: ER 11:59
PROVIDERS: Physician Assistant
DX: R56.9 Unspecified convulsions (principal); Z79.899 Other long term (current) drug therapy; Z88.0 Allergy status to penicillin
CPT/HCPCS: 36415; 80053; 85025; 96372; 99284-25; J1885

== ENCOUNTER 2022-01-21 19:41 | Emergency (ER) | payer OTHER ==
[~2022-01-21] VITALS: Ht 157.5 cm; Wt 107.0 kg
== END 2022-01-22 00:18 | disposition home or self-care (01) ==
LOC: ER 19:41
DX: G43.909 Migraine, unspecified, not intractable, without status migrainosus (principal); Z88.0 Allergy status to penicillin; Z79.899 Other long term (current) drug therapy
CPT/HCPCS: 96372; 99283-25; J0780; J1200; J1885

== ENCOUNTER 2022-02-21 10:37 | Emergency (ER) | payer OTHER ==
[~2022-02-21] VITALS: Ht 157.5 cm; Wt 108.9 kg
[2022-02-21] MEDS ORDERED: KETO10 PO (11:42)
[2022-02-21] MEDS ORDERED: AZIT250 PO (11:57)
== END 2022-02-21 12:00 | disposition home or self-care (01) ==
LOC: ER 10:37
DX: G43.909 Migraine, unspecified, not intractable, without status migrainosus (principal); K04.7 Periapical abscess without sinus; I10 Essential (primary) hypertension; Z88.0 Allergy status to penicillin; Z79.899 Other long term (current) drug therapy
CPT/HCPCS: J1885

== ENCOUNTER 2022-03-22 18:21 | Emergency (ER) | payer OTHER ==
[~2022-03-22] VITALS: Ht 157.5 cm; Wt 107.0 kg
[~2022-03-22 18:21] MED LIST changes: +AZIT250 PO
== END 2022-03-22 21:31 | disposition home or self-care (01) ==
LOC: ER 18:21
DX: K02.9 Dental caries, unspecified (principal); I10 Essential (primary) hypertension; G43.909 Migraine, unspecified, not intractable, without status migrainosus; Z88.0 Allergy status to penicillin; Z79.899 Other long term (current) drug therapy
CPT/HCPCS: 96372-59; 99282-25; J1885

== ENCOUNTER 2022-04-30 20:00 | Emergency (ER) | payer OTHER ==
[~2022-04-30] VITALS: Ht 157.5 cm; Wt 108.9 kg
[2022-04-30] MEDS ORDERED: KETO10 PO (23:57)
== END 2022-05-01 00:27 | disposition home or self-care (01) ==
LOC: ER 20:00
DX: G43.909 Migraine, unspecified, not intractable, without status migrainosus (principal); I10 Essential (primary) hypertension; Z88.0 Allergy status to penicillin; Z79.899 Other long term (current) drug therapy
CPT/HCPCS: J1200; J1885; J2765; J7030

== ENCOUNTER 2022-08-03 17:31 | Emergency (ER) | payer OTHER ==
[~2022-08-03] VITALS: Ht 154.9 cm; Wt 104.3 kg
== END 2022-08-03 19:02 | disposition home or self-care (01) ==
LOC: ER 17:31
DX: G43.909 Migraine, unspecified, not intractable, without status migrainosus (principal); Z88.0 Allergy status to penicillin; Z79.899 Other long term (current) drug therapy; I10 Essential (primary) hypertension
CPT/HCPCS: 96374; 96375; 99283-25; J1885; J2405; J7030

== ENCOUNTER 2022-09-16 16:11 | Emergency (ER) | payer OTHER ==
[~2022-09-16] VITALS: Ht 154.9 cm; Wt 108.9 kg
[2022-09-16 16:21] VITALS: BP 162/90
[2022-09-16] MEDS ORDERED: HYDR1TAB94 PO (17:42)
== END 2022-09-16 17:50 | disposition home or self-care (01) ==
LOC: ER 16:11
DX: G43.909 Migraine, unspecified, not intractable, without status migrainosus (principal); M54.2 Cervicalgia; W10.8XXA Fall (on) (from) other stairs and steps, initial encounter; Z88.0 Allergy status to penicillin; Z79.899 Other long term (current) drug therapy; I10 Essential (primary) hypertension
CPT/HCPCS: 96374; 96375; 99283-25; J0780; J1200; J1885; J7030